=== PATIENT | female | born 1975 | race Caucasian/White ===

== ENCOUNTER → 2020-01-24 16:35 | Outpatient (CLI) | payer OTHER, SELFPAY ==
[2020-01-24 18:29] LABS: hCG Titer Quant., Serum < 1 mIU/mL (1-3)
[2020-01-24 19:32] LABS: T4 Free Direct 1.28 ng/dL (0.76-1.46); Thyroid Stim Hormone (TSH) 0.69 uIU/mL (0.358-3.74)
[2020-02-02 14:08] LABS: Testosterone, % Free 1.29 % (0.50-2.80); Testosterone, Free 0.26 ng/dL (0.10-0.85); Testosterone, Total 20 ng/dL (8-48)
[2020-02-05 05:26] LABS: Androstenedione 124 ng/dL (41-262); Sex Hormone-binding Globulin 82.1 nmol/L (24.6-122.0)
== END ==
PROVIDERS: Referring Provider Dermatology Pediatric Dermatology; Visit Provider Dermatology Pediatric Dermatology
DX: L81.4 Other melanin hyperpigmentation (principal); L81.9 Disorder of pigmentation, unspecified; L70.0 Acne vulgaris; L70.5 Acne excoriee; E28.2 Polycystic ovarian syndrome; Z79.899 Other long term (current) drug therapy
CPT/HCPCS: 36415; 82157; 82627; 83001; 84270; 84402; 84403; 84439; 84443; 84702; 82626

== ENCOUNTER → 2020-02-29 09:38 | Outpatient (CLI) | payer OTHER, SELFPAY ==
[2020-02-29 12:54] LABS: Internal QC Validated? YES +Cl - CLEAR BKGD; Pregnancy, Urine Negative Negative
== END ==
PROVIDERS: Referring Provider Physician Assistant Medical; Visit Provider Physician Assistant Medical
DX: L70.0 Acne vulgaris (principal); Z79.899 Other long term (current) drug therapy
CPT/HCPCS: 81025